=== PATIENT | male | born 1960 | race Caucasian/White ===

== ENCOUNTER → 2021-05-28 | Outpatient (CLI) | payer OTHER ==
--- NOTE | 2021-05-28 11:02 | Diagnostic Imaging Report ---
INDICATION: Chronic back pain. FINDINGS: 3 views. Lumbosacral spine shows good alignment. Body height well maintained throughout. Facets show good alignment without pars defect. There is some hypertrophic lipping of the endplates anteriorly at multiple levels. There is calcification aorta without evidence of aneurysm. IMPRESSION: Mild/moderate degenerative disc disease with hypertrophic lipping of the endplates anteriorly. Dictated by: Dictated on workstation # [id number]
== END ==
LOC: RAD 09:59
PROVIDERS: ATTEND Anesthesiology Pain Medicine
DX: Z02.71 Encounter for disability determination (principal); M51.36 Other intervertebral disc degeneration, lumbar region
CPT/HCPCS: 72100

== ENCOUNTER 2021-08-19 09:12 | Outpatient (RCR) | payer OTHER | END 2021-08-29 17:00 | disposition home or self-care (01) | PROVIDERS: ATTEND Anesthesiology Pain Medicine | DX: Z02.71 Encounter for disability determination (principal) ==

== ENCOUNTER 2022-07-14 12:43 | Emergency (ER) | payer MEDICARE ==
[~2022-07-14] VITALS: Ht 182 cm; Wt 108.0 kg
--- NOTE | 2022-07-14 13:05 | ED General ---
General Chief Complaint: Cardiac/General Problems Stated Complaint: HIGH BLOOD PRESSURE Nursing Triage Note: PT AMB TO RM 5 PT SENT TO ED BY DR URIBE W ELEVATED B/P Source of Information: Patient (VAGUE, DIFFICULT HISTORIAN) History of Present Illness Date Seen by Provider: Jul 14, 2022 Time Seen by Provider: 12:50 Initial Comments PT ARRIVES VIA POV --WAS SENT HER BY DR. URIBE AT [facility] PT STATES HE IS HERE FOR ELEVATED BLOOD PRESSURE PT HAS NO IDEA WHAT BP READINGS HAVE BEEN, PT ONLY STATES "HIGH" PT STATES SHE HAS NOT SEEN A DR IN A FEW YEARS, AND SAW DR. URIBE ABOUT A MONTH AGO, AND WAS DX WITH HTN, AND PLACED ON UNKNOWN BP MEDICATION, AND WAS GIVEN A BP MONITOR PT STATES "SHE DIDN'T LIKE THE READINGS, AND TOLD ME TO COME HERE" NO CHEST PAIN NO PALPITATIONS NO SHORTNESS OF BREATH NO SWELLING IN LEGS/FEET OR PAIN IN CALVES NO HEADACHES STATES HE IS ALWAYS DIZZY, NO DIFFERENT THAN NORMAL STATES HE HAS CHRONIC VISION PROBLEMS, NO DIFFERENT THAN NORMAL DOES STATE HIS RIGHT THUMB HURTS AND TINGLES A LITTLE PT IS INSULIN DEPENDENT DIABETIC. STATES HE CHECKS HIS BLOOD SUGAR, STATES "THEY GO UP AND DOWN" BUT CANNOT STATE WHAT ANY OF HIS READINGS HAVE BEEN. PT SMOKES 1 PPD, OCCASIONAL ALCOHOL USE, SMOKES MARIJUANA DAILY PT STATES "I TRY NOT TO TAKE ANY MEDICATIONS--I DON'T TRUST ANY PHARMACEUTICAL COMPANIES" PT IS NOT COVID OR FLU VACCINATED; PCP: [facility], DR. URIBE Allergies and Home Medications Allergies Coded Allergies: No Known Drug Allergies (Unverified , 07/14/22) Patient Home Medication List Home Medication List Reviewed: Yes Review of Systems Review of Systems Constitutional: see HPI EENTM: see HPI Respiratory: no symptoms reported Cardiovascular: No chest pain, No edema, No palpitations, No syncope, No vascular heart diseas Gastrointestinal: no symptoms reported Genitourinary: no symptoms reported Musculoskeletal: see HPI, other (CHRONIC BACK PAIN ) Skin: no symptoms reported Psychiatric/Neurological: See HPI Hematologic/Lymphatic: No Symptoms Reported Immunological/Allergic: no symptoms reported Past Wsslhvi-Hpsyef-Jdrikw Hx Patient Social History Tobacco Use?: Yes Tobacco type used: Cigarettes Smoking Status: Current Everyday Smoker Substance use?: Yes Substance type: Marijuana Substance frequency: Daily Alcohol Use?: Yes Alcohol Frequency: Once in a while Pt feels they are or have been: No Immunizations Up To Date Influenza Vaccine Up-to-Date: No; Not Current Past Medical History Surgery/Hospitalization HX: DIABETES, NECK SURGERY Surgeries: Yes (CERVICAL FUSION C5-6-7) Appendectomy, Orthopedic Respiratory: No Cardiac: Yes Hypertension Neurological: No Genitourinary: No Gastrointestinal: No Musculoskeletal: Yes (CHRONIC NECK PAIN ) Degenerate Disk Disease, Chronic Back Pain Endocrine: Yes Diabetes, Insulin dep, Hypothyroidsim HEENT: No Loss of Vision: Left Cancer: No Psychosocial: No Integumentary: No Blood Disorders: No Family Medical History SOCIAL HISTORY: -SMOKES 1 PPD -OCCASIONAL ETOH USE -SMOKES MARIJUANA DAILY Physical Exam Vital Signs Vital Signs - First Documented 07/14/22 12:50 Temp 35.6 Pulse 87 Resp 17 B/P (MAP) 204/106 (138) Pulse Ox 96 Capillary Refill : Less Than 3 Seconds Height, Weight, BMI Height: '" Weight: lbs. oz. kg; 32.00 BMI Method: General Appearance: No Apparent Distress, WD/WN, Other (DOES NOT APPEAR ILL 0R TO BE IN ANY DISCOMFORT OR DISTRESS. REEKS OF CIGARETTES) Neck: Normal Inspection Respiratory: Normal Breath Sounds, No Accessory Muscle Use, No Respiratory Distress Cardiovascular: Regular Rate, Rhythm, No Edema, No JVD, No Murmur Gastrointestinal: Non Tender Back: No CVA Tenderness Extremity: Normal Capillary Refill, Normal Inspection, Normal Range of Motion, Non Tender, No Calf Tenderness, No Pedal Edema Neurologic/Psychiatric: Alert, Oriented x3, No Motor/Sensory Deficits, lens coater II- XII Norm as Tested Skin: Normal Color, Warm/Dry Progress/Results/Core Measures Suspected Sepsis SIRS Temperature: Pulse: 87 Respiratory Rate: 17 Laboratory Tests 07/14/22 13:18: White Blood Count 10.5 Blood Pressure 204 /106 Mean: 138 Laboratory Tests 07/14/22 13:18: Creatinine 1.05, INR Comment 0.9, Platelet Count 325, Total Bilirubin 0.8 Results/Orders Lab Results Laboratory Tests Test 07/14/22 13:18 07/14/22 14:02 07/14/22 14:17 Range/Units White Blood Count 10.5 4.3-11.0 10^3/uL Red Blood Count 5.73 H 4.30-5.52 10^6/uL Hemoglobin 16.5 13.3-17.7 g/dL Hematocrit 49 40-54 % Mean Corpuscular Volume 85 80-99 fL Mean Corpuscular Hemoglobin 29 25-34 pg Mean Corpuscular Hemoglobin Concent 34 32-36 g/dL Red Cell Distribution Width 13.5 10.0-14.5 % Platelet Count 325 130-400 10^3/uL Mean Platelet Volume 9.3 9.0-12.2 fL Immature Granulocyte % (Auto) 1 % Neutrophils (%) (Auto) 72 42-75 % Lymphocytes (%) (Auto) 19 12-44 % Monocytes (%) (Auto) 5 0-12 % Eosinophils (%) (Auto) 2 0-10 % Basophils (%) (Auto) 1 0-10 % Neutrophils # (Auto) 7.6 1.8-7.8 10^3/uL Lymphocytes # (Auto) 2.0 1.0-4.0 10^3/uL Monocytes # (Auto) 0.6 0.0-1.0 10^3/uL Eosinophils # (Auto) 0.2 0.0-0.3 10^3/uL Basophils # (Auto) 0.1 0.0-0.1 10^3/uL Immature Granulocyte # (Auto) 0.1 0.0-0.1 10^3/uL Prothrombin Time 13.1 12.2-14.7 SEC INR Comment 0.9 0.8-1.4 Activated Partial Thromboplast Time 28 24-35 SEC Sodium Level 140 135-145 MMOL/L Potassium Level 4.1 3.6-5.0 MMOL/L Chloride Level 104 98-107 MMOL/L Carbon Dioxide Level 26 21-32 MMOL/L Anion Gap 10 5-14 MMOL/L Blood Urea Nitrogen 12 7-18 MG/DL Creatinine 1.05 0.60-1.30 MG/DL Estimat Glomerular Filtration Rate 80 BUN/Creatinine Ratio 11 Glucose Level 72 70-105 MG/DL Calcium Level 9.1 8.5-10.1 MG/DL Corrected Calcium 8.9 8.5-10.1 MG/DL Magnesium Level 2.4 1.6-2.4 MG/DL Total Bilirubin 0.8 0.1-1.0 MG/DL Aspartate Amino Transf (AST/SGOT) 17 5-34 U/L Alanine Aminotransferase (ALT/SGPT) 13 0-55 U/L Alkaline Phosphatase 116 40-136 U/L Total Creatine Kinase 224 H 30-200 U/L Troponin I < 0.028 <0.028 NG/ML B-Type Natriuretic Peptide 28.0 <100.0 PG/ML Total Protein 7.5 6.4-8.2 GM/DL Albumin 4.3 3.2-4.5 GM/DL Free Thyroxine 0.74 0.70-1.48 NG/DL TSH [place] Testing 5.66 H 0.35-4.94 UIU/ML Serum Alcohol < 10 <10 MG/DL Urine Color YELLOW Urine Clarity CLEAR Urine pH 6.0 5-9 Urine Specific [place] 1.015 L 1.016-1.022 Urine Protein NEGATIVE NEGATIVE Urine Glucose (UA) NEGATIVE NEGATIVE Urine Ketones NEGATIVE NEGATIVE Urine Nitrite NEGATIVE NEGATIVE Urine Bilirubin NEGATIVE NEGATIVE Urine Urobilinogen 0.2 < = 1.0 MG/DL Urine Leukocyte Esterase NEGATIVE NEGATIVE Urine RBC (Auto) NEGATIVE NEGATIVE Urine RBC NONE /HPF Urine WBC NONE /HPF Urine Crystals NONE /LPF Urine Bacteria NEGATIVE /HPF Urine Casts NONE /LPF Urine Mucus NEGATIVE /LPF Urine Culture Indicated NO Urine Opiates Screen NEGATIVE NEGATIVE Urine Oxycodone Screen NEGATIVE NEGATIVE Urine Methadone Screen NEGATIVE NEGATIVE Urine Propoxyphene Screen NEGATIVE NEGATIVE Urine Barbiturates Screen NEGATIVE NEGATIVE Ur Tricyclic Antidepressants Screen NEGATIVE NEGATIVE Urine Phencyclidine Screen NEGATIVE NEGATIVE Urine Amphetamines Screen NEGATIVE NEGATIVE Urine Methamphetamines Screen NEGATIVE NEGATIVE Urine Benzodiazepines Screen NEGATIVE NEGATIVE Urine Cocaine Screen NEGATIVE NEGATIVE Urine Cannabinoids Screen POSITIVE H NEGATIVE Glucometer 41 *L 70-110 MG/DL My Orders Orders - JEWEL HENDRIX DO Ed Iv/Invasive Line Start (07/14/22 12:51) Ekg Tracing (07/14/22 12:51) Monitor-Rhythm Ecg Trace Only (07/14/22 12:51) Chest 1 View, Ap/Pa Only (07/14/22 12:51) Bnp [place] (07/14/22 12:51) Comprehensive Metabolic Panel (07/14/22 12:51) Creatine Kinase (07/14/22 12:51) Magnesium (07/14/22 12:51) Troponin I [place] (07/14/22 12:51) Alcohol (07/14/22 12:58) Drug Screen Stat (Urine) (07/14/22 12:58) Protime With Inr (07/14/22 12:58) Partial Thromboplastin Time (07/14/22 12:58) Thyroid Analyzer (07/14/22 12:58) Ua Culture If Indicated (07/14/22 12:58) Hydralazine Injection (Apresoline Inject (07/14/22 13:15) Cbc With Automated Diff (07/14/22 13:29) Free T4 (Free Thyroxine) (07/14/22 13:18) Accucheck Stat ONCE (07/14/22 14:19) Dextrose 24 Gm Oral Gel (Insta Glucose (07/14/22 14:30) Accucheck Stat ONCE (07/14/22 14:42) Medications Given in ED Current Medications Medications Dose Ordered Sig/Heide Route Start Time Stop Time Status Last Admin Dose Admin Dextrose 21.6 gm ONCE PRN PO 07/14/22 14:30 07/14/22 14:45 21.6 GM Hydralazine HCl 10 mg ONCE ONCE IV 07/14/22 13:15 07/14/22 13:16 DC 07/14/22 13:25 10 MG Vital Signs/I&O 07/14/22 12:50 Temp 35.6 Pulse 87 Resp 17 B/P (MAP) 204/106 (138) Pulse Ox 96 Capillary Refill : Less Than 3 Seconds Blood Pressure Mean: 138 Progress Note : Progress Note ADAMANTLY REFUSES TO WEAR MASK, PER HOSPITAL POLICY. INITIAL BP 204/106, HR IN 80'S. GIVEN HYDRALAZINE. BP DOWN AND HEART RATE STABLE. 1420--PT WAS FEELING SHAKEY, ACCUCHECK 41, GIVEN DIANNA CRACKERS AND ORAL GLUCOSE. PT NOW STATES HE HAS NOT EATEN ALL DAY--NO PARTICULAR REASON FOR THIS--"JUST DIDN'T" REPEAT BLOOD GLUCOSE 97 AND PT IS FEELING MUCH BETTER NO PRIOR VISITS HERE REVIEWED TEST RESULTS, ANTICIPATED COURSE, MEDICATIONS, NEED FOR FOLLOW UP AND RETURN PRECAUTIONS AT DISMISSAL, PT NOW STATES THAT HE HAS ALREADY DOUBLED UP TWICE ON LOSARTAN--IS NOW TAKING 4 PILLS EVERY DAY. ON REVIEW OF MED RECONCILIATION, PT WAS PRESCRIBED LOSARTAN 25 MG ON 06/29/22, AND LEVOTHYROXINE 50 MCG ON 07/06/22 PT STATES HE DOES NOT HAVE A FOLLOW UP APPOINTMENT WITH [facility] ECG Initial ECG Impression Date: Jul 14, 2022 Initial ECG Impression Time: 13:02 Initial ECG Rate: 76 Initial ECG Rhythm: Normal Sinus Initial ECG Impression: Nonspecific Changes Initial ECG Comparisson: No Previous ECG Available Comment INTERPRETED BY ME Diagnostic Imaging Comments CXR--PER RADIOLOGIST REPORT AT 1353 FINDINGS: Heart size is normal. No vascular congestion. Clear lungs. No pleural pathology. IMPRESSION: Negative. Reviewed: Reviewed by Me Departure Impression Primary Impression: HTN (hypertension) Additional Impressions: IDDM (insulin dependent diabetes mellitus) Hypoglycemic episode in patient with diabetes mellitus Marijuana use Disposition: HOME, SELF-CARE Condition: Improved Departure-Patient Inst. Referrals: BRITNEY URIBE DO (PCP/Family) Primary Care Physician Patient Instructions: High Blood Pressure ED, Type 2 Diabetes (DC), DASH Diet, Carb Counting for Adults With Diabetes Add. Discharge Instructions: CONTINUE YOUR CURRENT DOSE OF LOSARTAN CONTINUE YOUR CURRENT INSULIN DOSING. EAT AT LEAST 3 HIGH PROTEIN MEALS A DAY FOLLOW UP WITH [facility] THIS WEEK FOR FURTHER CARE, RETURN TO ER IF SYMPTOMS WORSEN--CALL TODAY TO MAKE AN APPOINTMENT All discharge instructions reviewed with patient and/or family. Voiced understanding. JEWEL HENDRIX DO Jul 14, 2022 13:05
[2022-07-14] MEDS ORDERED: hydrALAZINE (APESOLINE) 20 MG/ML VIAL IV ONE (13:15)
--- NOTE | 2022-07-14 13:28 | Diagnostic Imaging Report ---
INDICATION: Hypertension. COMPARISON: No priors. FINDINGS: Heart size is normal. No vascular congestion. Clear lungs. No pleural pathology. IMPRESSION: Negative. Dictated by: Dictated on workstation # [id number]
[2022-07-14 13:39] LABS: BASOPHILS # (AUTO) 0.1 10^3/uL (0.0-0.1); BASOPHILS % (AUTO) 1 % (0-10); EOSINOPHILS # (AUTO) 0.2 10^3/uL (0.0-0.3); EOSINOPHILS % (AUTO) 2 % (0-10); HEMATOCRIT 49 % (40-54); HEMOGLOBIN 16.5 g/dL (13.3-17.7); LYMPHOCYTES % (AUTO) 19 % (12-44); MEAN CORPUSCULAR HEMOGLOBIN 29 pg (25-34); MEAN CORPUSCULAR HGB CONC 34 g/dL (32-36); MEAN CORPUSCULAR VOLUME 85 fL (80-99); MEAN PLATELET VOLUME 9.3 fL (9.0-12.2); MONOCYTES # (AUTO) 0.6 10^3/uL (0.0-1.0); MONOCYTES % (AUTO) 5 % (0-12); NEUTROPHILS # (AUTO) 7.6 10^3/uL (1.8-7.8); NEUTROPHILS % (AUTO) 72 % (42-75); PLATELET COUNT 325 10^3/uL (130-400); WHITE BLOOD COUNT 10.5 10^3/uL (4.3-11.0)
[2022-07-14 13:43] LABS: ALBUMIN 4.3 GM/DL (3.2-4.5); CHLORIDE 104 MMOL/L (98-107); POTASSIUM 4.1 MMOL/L (3.6-5.0); SODIUM 140 MMOL/L (135-145)
[2022-07-14 13:44] LABS: CALCIUM 9.1 MG/DL (8.5-10.1)
[2022-07-14 13:45] LABS: GLUCOSE 72 MG/DL (70-105)
[2022-07-14 13:46] LABS: CARBON DIOXIDE 26 MMOL/L (21-32); TOTAL PROTEIN 7.5 GM/DL (6.4-8.2)
[2022-07-14 13:47] LABS: BILIRUBIN,TOTAL 0.8 MG/DL (0.1-1.0); INR 0.9 (0.8-1.4); PROTHROMBIN TIME PATIENT 13.1 SEC (12.2-14.7)
[2022-07-14 13:49] LABS: ALKALINE PHOSPHATASE 116 U/L (40-136); CREATININE SERUM 1.05 MG/DL (0.60-1.30); GFR ESTIMATED 80
[2022-07-14 13:50] LABS: BUN/CREATININE RATIO 11
[2022-07-14 13:52] LABS: ALANINE AMINOTRANSFERASE 13 U/L (0-55); MAGNESIUM 2.4 MG/DL (1.6-2.4)
[2022-07-14 13:53] LABS: CREATINE KINASE 224 U/L (30-200)
[2022-07-14 14:12] LABS: BILIRUBIN,URINE NEGATIVE (NEGATIVE); CLARITY,URINE CLEAR; COLOR,URINE YELLOW; GLUCOSE, URINE (UA) NEGATIVE (NEGATIVE); KETONES,URINE NEGATIVE (NEGATIVE); LEUKOCYTE ESTERASE ,URINE NEGATIVE (NEGATIVE); NITRITE,URINE NEGATIVE (NEGATIVE); PROTEIN,URINE NEGATIVE (NEGATIVE)
[2022-07-14 14:13] LABS: TSH (THYROID ANALYZER) 5.66 UIU/ML (0.35-4.94)
[2022-07-14] MEDS ORDERED: DEXTROSE 24 GM ORAL GEL TUBE PO PRN (14:30)
[2022-07-14 14:31] LABS: BACTERIA,URINE NEGATIVE /HPF
[2022-07-14 14:42] LABS: AMPHETAMINE SCREEN, URINE NEGATIVE (NEGATIVE); BARBITURATE SCREEN URINE NEGATIVE (NEGATIVE); BENZODIAZEPINES SCREEN URINE NEGATIVE (NEGATIVE); CANNABINOID SCREEN, URINE POSITIVE (NEGATIVE); COCAINE SCREEN URINE NEGATIVE (NEGATIVE); METHADONE STAT NEGATIVE (NEGATIVE); OPIATE SCREEN URINE NEGATIVE (NEGATIVE); OXYCODONE STAT NEGATIVE (NEGATIVE); PROPOXYPHENE STAT NEGATIVE (NEGATIVE); TRICYCLIC ANTIDEPRESSANTS SCRE NEGATIVE (NEGATIVE)
[2022-07-14 14:48] LABS: FREE T4 (FREE THYROXINE) 0.74 NG/DL (0.70-1.48)
[2022-07-14 15:09] VITALS: BP 182/79
== END 2022-07-14 15:09 | disposition home or self-care (01) ==
LOC: EDUNIT# 12:43 → ER 12:46
DX: I10 Essential (primary) hypertension (principal); E11.649 Type 2 diabetes mellitus with hypoglycemia without coma; F12.90 Cannabis use, unspecified, uncomplicated; F17.210 Nicotine dependence, cigarettes, uncomplicated; Z28.310 Unvaccinated for COVID-19; Z79.4 Long term (current) use of insulin; Z79.899 Other long term (current) drug therapy
CPT/HCPCS: 71045; 80053; 80306; 81000; 82550; 82947; 83735; 83880; 84439; 84443; 84484; 85025; 85610; 85730; 93005; 93041; 99284; G0480; 36415; 80320

== ENCOUNTER 2022-09-24 06:34 | Outpatient (CLI) | payer MEDICARE ==
[~2022-09-24] VITALS: Ht 182.8 cm; Wt 104.5 kg
[2022-09-28] MEDS ORDERED: INSU100V31 IJ (13:08)
[2022-09-28] MEDS ORDERED: INSN1U SQ (13:08)
[2022-09-28] MEDS ORDERED: LEVO50CA4 PO (13:08)
[2022-09-28] MEDS ORDERED: LOSA1TAB20 PO (13:08)
== END 2022-09-28 13:22 ==
LOC: PREOP 06:34
PROVIDERS: ATTEND Specialist
DX: Z01.818 Encounter for other preprocedural examination (principal); H26.9 Unspecified cataract

== ENCOUNTER 2022-10-02 08:59 | Day surgery (SDC) | payer MEDICARE ==
[~2022-10-02] VITALS: Ht 182.8 cm; Wt 104.5 kg
[~2022-10-02 08:59] MED LIST: INSN1U SQ; INSU100V31 IJ; LEVO50CA4 PO; LOSA1TAB20 PO
[2022-10-02] MEDS ORDERED: MIDAZOLAM 2 MG/2 ML (VERSED) VIAL ONE (09:07)
[2022-10-02] MEDS: TETRACAINE 0.5% OPHTH SOLN 4 ML BTL (SINGLE DOSE ONLY) OU PRN ×4 (09:08→09:26)
[2022-10-02] MEDS: PHENYLEPHRINE 10% OPHTH (NEO-SYN) 5 ML BTL OU SCH ×3 (09:15→09:26)
[2022-10-02] MEDS: TROPICAMIDE 1% OPH SOLN (MYDRIACYL) 15 ML BTL OP SCH ×3 (09:15→09:26)
[2022-10-02] MEDS ORDERED: TIMOLOL 0.5% (CATARACTS) 0.3 ML BTL OU PRN (09:15)
[2022-10-02] MEDS ORDERED: POVIDONE (BETADINE) OPHTH SOLN 5% 30 ML OP ONE (09:15)
[2022-10-02] MEDS ORDERED: MOXIFLOXACIN OPHTH SOLN 5 MG/ML 0.3 ML SYRINGE OP ONE (09:15)
--- NOTE | 2022-10-02 09:18 | Ophthalmologist Pre-Op Note ---
Pre-Operative Progress Note H&P Reviewed The H&P was reviewed, patient examined and no changes noted. Date H&P Reviewed: October 02, 2022 Time H&P Reviewed: 09:18 Pre-Op Dx Cataract, Left Eye JASKARAN BOSS MD October 02, 2022 09:18
[2022-10-02 09:23] VITALS: BP 147/86
--- NOTE | 2022-10-02 09:48 | Ophthalmology Operative Report ---
Cataract removal/placement IOL PREOPERATIVE DIAGNOSIS: Cataract Left Eye POSTOPERATIVE DIAGNOSIS: Cataract Left Eye PROCEDURE: Cataract removal and placement of posterior chamber implant, left eye SURGEON: Dirk Boss ANESTHESIA: Topical with sedation COMPLICATIONS: None ESTIMATED BLOOD LOSS: Minimal DESCRIPTION OF PROCEDURE: After proper informed consent was obtained, the patient, a 61 male, was taken to the Operating Room and the left eye was anesthetized with tetracaine. The left eye was then prepped and draped in the usual manner. A wire lid speculum was placed. A paracentesis was made at the left hand position. Preservative free lidocaine was injected into the anterior chamber followed by viscoelastic. A clear corneal incision was made in the temporal position. A capsulorrhexis was preformed and the central nuclear and cortical material were removed. The posterior capsule was polished and an Jose Luis 20.5 AU00T0 was placed into the capsular bag. The residual viscoelastic was aspirated and balanced saline solution was injected into the anterior chamber. Moxifloxacin was injected into the anterior chamber. The wound was checked and found to be water tight. The patient tolerated the procedure well without complications. DIRK BOSS MD October 02, 2022 09:48
[2022-10-02 09:52] VITALS: BP 147/86
[2022-10-02] MEDS ORDERED: acetaZOLAMIDE ER 500 MG CAP (DIAMOX SEQUELS) PO ONE (10:30)
--- NOTE | 2022-10-02 12:22 | Anesthesia-General Post-Op ---
MAC Patient Condition Mental Status/LOC: Same as Preop Cardiovascular: Satisfactory Nausea/Vomiting: Absent Respiratory: Satisfactory Pain: Controlled Complications: Absent Post Op Complications Complications None Follow Up Care/Instructions Patient Instructions None needed. Anesthesiology Discharge Order Discharge Order Patient is doing well, no complaints, stable vital signs, no apparent adverse anesthesia problems. No complications reported per nursing. ISAAK WEBSTER CRNA October 02, 2022 12:22
== END 2022-10-02 09:56 | disposition home or self-care (01) ==
LOC: SDC 08:59
PROVIDERS: ATTEND Specialist
DX: E11.36 Type 2 diabetes mellitus with diabetic cataract (principal); H25.9 Unspecified age-related cataract
CPT/HCPCS: 66984; 82947; V2632

== ENCOUNTER 2023-01-07 15:43 | Emergency (ER) | payer MEDICARE, MEDICAID ==
[~2023-01-07] VITALS: Ht 182.8 cm; Wt 100.0 kg
[2023-01-07] MEDS ORDERED: NS IV 1000 ML 1,000 ML IV STA (16:05)
--- NOTE | 2023-01-07 16:10 | ED General ---
General Chief Complaint: Dizziness/Syncope Stated Complaint: CONFUSION/SYNCOPAL EPISODE Nursing Triage Note: PT AMB TO [facility] WITH C/O DIZZINESS SINCE YESTREDAY, SYNCOPAL EPISODE YESTERDAY, NAUSEA AND MULTIPLE EPISODES OF VOMITTING. PT DENIES VOMITTING TODAY Source of Information: Patient, RN/MD Exam Limitations: No Limitations History of Present Illness Date Seen by Provider: Jan 07, 2023 Time Seen by Provider: 15:47 Initial Comments 62-year-old male with past medical history of diabetes and hypertension coming in as a referral from [facility]. He has felt lightheaded for quite some time, he equates it to being on a new blood pressure medicine for the past 6 months. He states when he is doing better and remembering to take it, he tends to feel more lightheaded. Yesterday he had an episode where he felt li ghtheaded, had a syncopal episode lasting several seconds. Prior to this he had multiple episodes of nonbloody nonbilious vomiting. He denies any vomiting today. Denies any abdominal pain then or now. He is also denying any chest pain, shortness of breath, fever, diarrhea, dysuria, focal weakness or numbness, vision changes, or any other concerns. He is at his baseline right now. Allergies and Home Medications Allergies Coded Allergies: No Known Drug Allergies (Unverified , 09/28/22) Patient Home Medication List Home Medication List Reviewed: Yes Insulin NPH Human Isophane (Novolin N) 100 Unit/Ml Vial, 0 SQ UD, (Reported) Entered as Reported by: MARIA ISABEL TOVAR on 09/28/22 1308 Insulin Regular, Human (Novolin R) 100 Unit/Ml Vial, 0 IJ UD, (Reported) Entered as Reported by: MARIA ISABEL TOVAR on 09/28/22 1308 Levothyroxine Sodium (Levothyroxine) 50 Mcg Capsule, 50 MCG PO DAILY, (Reported) Entered as Reported by: MARIA ISABEL TOVAR on 09/28/22 1308 Losartan/Hydrochlorothiazide (Losartan-Hctz 50-12.5 mg Tab) 50 Mg-12.5 Mg Tablet, 1 EACH PO BID, (Reported) Entered as Reported by: MARIA ISABEL TOVAR on 09/28/22 1308 Ondansetron (Ondansetron Odt) 4 Mg Tab.rapdis, 4 MG SL Q6H PRN for NAUSEA/VOMITING Prescribed by: ARMINDA NOEL on 01/07/23 3427 Review of Systems Review of Systems Constitutional: No fever EENTM: no symptoms reported Respiratory: no symptoms reported Cardiovascular: see HPI Gastrointestinal: no symptoms reported Genitourinary: no symptoms reported Musculoskeletal: no symptoms reported Skin: no symptoms reported Psychiatric/Neurological: See HPI Hematologic/Lymphatic: No Symptoms Reported Immunological/Allergic: no symptoms reported Past Kdjfwpr-Fzdezr-Gnsfzt Hx Patient Social History Tobacco Use?: Yes Tobacco type used: Cigarettes Substance use?: Yes Substance type: Marijuana Alcohol Use?: Yes Alcohol Frequency: Rarely Pt feels they are or have been: No Past Medical History Surgery/Hospitalization HX: DIABETES, NECK SURGERY HTN Surgeries: Yes (CERVICAL FUSION C5-6-7) Appendectomy, Orthopedic Respiratory: No Cardiac: Yes Hypertension Neurological: No Genitourinary: No Gastrointestinal: No Musculoskeletal: Yes (CHRONIC NECK PAIN ) Degenerate Disk Disease, Chronic Back Pain Endocrine: Yes Diabetes, Insulin dep, Hypothyroidsim HEENT: No Loss of Vision: Left Cancer: No Psychosocial: No Integumentary: No Blood Disorders: No Family Medical History SOCIAL HISTORY: -SMOKES 1 PPD -OCCASIONAL ETOH USE -SMOKES MARIJUANA DAILY Physical Exam Vital Signs Vital Signs - First Documented 01/07/23 15:56 Temp 36.4 Pulse 90 Resp 16 B/P (MAP) 183/108 (133) Pulse Ox 97 Capillary Refill : Height, Weight, BMI Height: '" Weight: lbs. oz. kg; 29.00 BMI Method: General Appearance: No Apparent Distress, WD/WN Eyes: Bilateral Eye Normal Inspection, Bilateral Eye PERRL, Bilateral Eye EOMI HEENT: PERRL/EOMI, Normal ENT Inspection, Pharynx Normal Neck: Full Range of Motion, Normal Inspection, Non Tender, Supple Respiratory: Chest Non Tender, Lungs Clear, Normal Breath Sounds, No Accessory Muscle Use, No Respiratory Distress Cardiovascular: Regular Rate, Rhythm, No Edema, Normal Peripheral Pulses Gastrointestinal: Normal Bowel Sounds, Non Tender, Soft; No Distended, No Guarding Back: Normal Inspection, No CVA Tenderness, No Vertebral Tenderness Extremity: Normal Capillary Refill, Normal Inspection, Normal Range of Motion, Non Tender, No Calf Tenderness, No Pedal Edema Neurologic/Psychiatric: Alert, Oriented x3, No Motor/Sensory Deficits, Normal Mood/Affect, grainer machine II-XII Norm as Tested, Other (Normal gait, normal finger-nose, normal sbms-xk-kphw, normal visual keenan and visual acuity, normal speech) Skin: Normal Color, Warm/Dry Progress/Results/Core Measures Suspected Sepsis SIRS Temperature: Pulse: 90 Respiratory Rate: 16 Laboratory Tests 01/07/23 16:00: White Blood Count 12.5H Blood Pressure 183 /108 Mean: 133 Laboratory Tests 01/07/23 16:00: Creatinine 1.37H, INR Comment 0.9, Platelet Count 291, Total Bilirubin 1.4H Results/Orders Lab Results Laboratory Tests Test 01/07/23 16:00 Range/Units White Blood Count 12.5 H 4.3-11.0 10^3/uL Red Blood Count 5.90 H 4.30-5.52 10^6/uL Hemoglobin 17.7 13.3-17.7 g/dL Hematocrit 51 40-54 % Mean Corpuscular Volume 86 80-99 fL Mean Corpuscular Hemoglobin 30 25-34 pg Mean Corpuscular Hemoglobin Concent 35 32-36 g/dL Red Cell Distribution Width 13.1 10.0-14.5 % Platelet Count 291 130-400 10^3/uL Mean Platelet Volume 9.4 9.0-12.2 fL Immature Granulocyte % (Auto) 0 % Neutrophils (%) (Auto) 71 42-75 % Lymphocytes (%) (Auto) 22 12-44 % Monocytes (%) (Auto) 6 0-12 % Eosinophils (%) (Auto) 1 0-10 % Basophils (%) (Auto) 1 0-10 % Neutrophils # (Auto) 8.8 H 1.8-7.8 10^3/uL Lymphocytes # (Auto) 2.7 1.0-4.0 10^3/uL Monocytes # (Auto) 0.7 0.0-1.0 10^3/uL Eosinophils # (Auto) 0.1 0.0-0.3 10^3/uL Basophils # (Auto) 0.1 0.0-0.1 10^3/uL Immature Granulocyte # (Auto) 0.0 0.0-0.1 10^3/uL Prothrombin Time 12.8 12.2-14.7 SEC INR Comment 0.9 0.8-1.4 Activated Partial Thromboplast Time 28 24-35 SEC Sodium Level 135 135-145 MMOL/L Potassium Level 4.0 3.6-5.0 MMOL/L Chloride Level 102 98-107 MMOL/L Carbon Dioxide Level 23 21-32 MMOL/L Anion Gap 10 5-14 MMOL/L Blood Urea Nitrogen 25 H 7-18 MG/DL Creatinine 1.37 H 0.60-1.30 MG/DL Estimat Glomerular Filtration Rate 58 BUN/Creatinine Ratio 18 Glucose Level 261 H 70-105 MG/DL Calcium Level 9.2 8.5-10.1 MG/DL Corrected Calcium 9.0 8.5-10.1 MG/DL Magnesium Level 2.2 1.6-2.4 MG/DL Total Bilirubin 1.4 H 0.1-1.0 MG/DL Aspartate Amino Transf (AST/SGOT) 16 5-34 U/L Alanine Aminotransferase (ALT/SGPT) 16 0-55 U/L Alkaline Phosphatase 113 40-136 U/L Troponin I < 0.028 <0.028 NG/ML Total Protein 7.1 6.4-8.2 GM/DL Albumin 4.2 3.2-4.5 GM/DL Lipase 64 8-78 U/L My Orders Orders - ARMINDA NOEL MD Ct Head Wo (01/07/23 16:05) Ed Iv/Invasive Line Start (01/07/23 16:05) Cbc With Automated Diff (01/07/23 16:05) Comprehensive Metabolic Panel (01/07/23 16:05) Lipase (01/07/23 16:05) Magnesium (01/07/23 16:05) Protime With Inr (01/07/23 16:05) Partial Thromboplastin Time (01/07/23 16:05) Troponin I Talha (01/07/23 16:05) Monitor-Rhythm Ecg Trace Only (01/07/23 16:05) Chest 1 View, Ap/Pa Only (01/07/23 16:05) Ns Iv 1000 Ml (Ns Iv 1000 Ml) (01/07/23 16:05) Ekg Tracing (01/07/23 16:33) Vital Signs/I&O 01/07/23 15:56 Temp 36.4 Pulse 90 Resp 16 B/P (MAP) 183/108 (133) Pulse Ox 97 Capillary Refill : Blood Pressure Mean: 133 Progress Note : Progress Note 62-year-old male presenting after several hours of vomiting yesterday with syncopal episode. ABCs were intact and vitals were stable on presentation. He is neurovascularly intact including a comprehensive neuro exam with nothing focal. Chest x-ray ordered and interpreted by me showing no obvious pneumonia or pneumothorax. CT head ordered and interpreted by me showing no intracranial hemorrhage or large stroke. Labs were ordered and were significant for a mild MAMIE, slightly elevated white blood cell count which is likely secondary to the vomiting episodes, negative troponin. Patient does not want to be COVID tested at this time. Abdominal exam is reassuring with no tenderness. His bilirubin is just slightly elevated, I would recommend he have a repeat CMP done to check his kidney function and liver function again. I believe he is otherwise stable for discharge with outpatient follow-up. He was sent home with strict return precautions ECG Initial ECG Impression Date: Jan 07, 2023 Initial ECG Impression Time: 17:07 Initial ECG Rate: 66 Initial ECG Rhythm: Normal Sinus Comment Narrow QRS, normal axis, no significant ST changes or T wave abnormalities, no STEMI Diagnostic Imaging Diagonstic Imaging: Xray (chest), CT (head) Comments [facility] [place], [place] NAME: RUSTAM SORIANO [email or web address] REC#: [id number] PT STATUS: REG ER : 1960 PHYSICIAN: ARMINDA NOEL MD ADMIT DATE: 01/07/23/ER Draft Date of Exam:01/07/23 CHEST 1 VIEW, AP/PA ONLY EXAMINATION: Chest 1 view. HISTORY: Syncope. COMPARISON: 07/14/2022. FINDINGS: The lungs are clear without edema or pneumonia. No pleural effusion or pneumothorax. Heart size is normal. IMPRESSION: Clear lungs. Dictated on workstation # [id number] Dict: 01/07/23 165 Trans: 01/07/231652 [facility] [id number] Interpreted by: OBINNA GARZA MD Electronically signed by: [facility]. [place], [place] NAME: RUSTAM SORIANO [email or web address] REC#: [id number] PT STATUS: REG ER : 1960 PHYSICIAN: ARMINDA NOEL MD ADMIT DATE: 01/07/23/ER Draft Date of Exam:01/07/23 CT HEAD WO INDICATION: Syncope, aphasia that has resolved. TECHNIQUE: Routine non contrast-enhanced axial images were obtained from the skull base to the vertex. Auto Exposure Controls were utilized during the CT exam to meet ALARA standards for radiation dose reduction COMPARISON: None. FINDINGS: The ventricles and cortical sulci are age-appropriate. There is no midline shift or mass-effect. No acute intra-axial hemorrhage is seen. There is no abnormal area of increased or decreased density to suggest acute hemorrhage or edema. No extra-axial mass or collection is present. Small scalp hematoma is noted posterolaterally on the right. The underlying bony calvarium is intact. The visualized paranasal sinuses are unremarkable. The mastoid air cells are clear. IMPRESSION: 1. No acute intracranial abnormality. No CT evidence of mass, acute infarct or intracranial hemorrhage. 2. Small scalp hematoma posterolaterally on the right. Dictated on workstation # [id number] Dict: 01/07/23 1649 Trans: 01/07/23 1654 [facility] [id number] Interpreted by: DB CHANDRA MD Electronically signed by: Departure Impression Primary Impression: Mild dehydration Additional Impressions: Syncope Qualified Codes: R55 - Syncope and collapse Vomiting in adult Hyperbilirubinemia Disposition: 01 HOME, SELF-CARE Condition: Stable Departure-Patient Inst. Decision time for Depature: 17:15 Referrals: BRITNEY URIBE DO (PCP/Family) Primary Care Physician Patient Instructions: Fainting, Adult ED Add. Discharge Instructions: We are not seeing any evidence of stroke or any significant concerns. It is pos sible that the medication for your blood pressure is causing you to be lightheaded. I would recommend discussing that with your regular doctor to see if they want to go down on the dose or change the medication. You were mildly dehydrated based on your labs from the vomiting. The fluid you received should help with that. Nausea medicines were sent to your pharmacy in case you become nauseous again. Of note, your bilirubin and creatinine were just very slightly elevated. We recommend your regular doctor redraw this in the next few weeks to month to see if they trend down to a more normal level. Scripts Ondansetron (Ondansetron Odt) 4 Mg Tab.rapdis 4 MG SL Q6H PRN for NAUSEA/VOMITING for 5 Days, #20 TAB Prov: ARMINDA NOEL MD 01/07/23 ARMINDA NOEL MD Jan 07, 2023 16:10
[2023-01-07 16:22] LABS: BASOPHILS # (AUTO) 0.1 10^3/uL (0.0-0.1); BASOPHILS % (AUTO) 1 % (0-10); EOSINOPHILS # (AUTO) 0.1 10^3/uL (0.0-0.3); EOSINOPHILS % (AUTO) 1 % (0-10); HEMATOCRIT 51 % (40-54); HEMOGLOBIN 17.7 g/dL (13.3-17.7); LYMPHOCYTES # (AUTO) 2.7 10^3/uL (1.0-4.0); LYMPHOCYTES % (AUTO) 22 % (12-44); MEAN CORPUSCULAR HEMOGLOBIN 30 pg (25-34); MEAN CORPUSCULAR HGB CONC 35 g/dL (32-36); MEAN CORPUSCULAR VOLUME 86 fL (80-99); MEAN PLATELET VOLUME 9.4 fL (9.0-12.2); MONOCYTES # (AUTO) 0.7 10^3/uL (0.0-1.0); MONOCYTES % (AUTO) 6 % (0-12); NEUTROPHILS # (AUTO) 8.8 10^3/uL (1.8-7.8); NEUTROPHILS % (AUTO) 71 % (42-75); PLATELET COUNT 291 10^3/uL (130-400); WHITE BLOOD COUNT 12.5 10^3/uL (4.3-11.0)
[2023-01-07 16:24] LABS: ALBUMIN 4.2 GM/DL (3.2-4.5); CHLORIDE 102 MMOL/L (98-107); SODIUM 135 MMOL/L (135-145)
[2023-01-07 16:26] LABS: CALCIUM 9.2 MG/DL (8.5-10.1)
[2023-01-07 16:27] LABS: GLUCOSE 261 MG/DL (70-105); TOTAL PROTEIN 7.1 GM/DL (6.4-8.2)
[2023-01-07 16:28] LABS: CARBON DIOXIDE 23 MMOL/L (21-32)
[2023-01-07 16:29] LABS: BILIRUBIN,TOTAL 1.4 MG/DL (0.1-1.0)
[2023-01-07 16:30] LABS: ALKALINE PHOSPHATASE 113 U/L (40-136); CREATININE SERUM 1.37 MG/DL (0.60-1.30); GFR ESTIMATED 58
[2023-01-07 16:31] LABS: BUN/CREATININE RATIO 18; INR 0.9 (0.8-1.4); PROTHROMBIN TIME PATIENT 12.8 SEC (12.2-14.7)
[2023-01-07 16:33] LABS: ALANINE AMINOTRANSFERASE 16 U/L (0-55)
[2023-01-07 16:34] LABS: MAGNESIUM 2.2 MG/DL (1.6-2.4)
[2023-01-07 16:35] LABS: LIPASE 64 U/L (8-78)
--- NOTE | 2023-01-07 16:53 | Diagnostic Imaging Report ---
EXAMINATION: Chest 1 view. HISTORY: Syncope. COMPARISON: 07/14/2022. FINDINGS: The lungs are clear without edema or pneumonia. No pleural effusion or pneumothorax. Heart size is normal. IMPRESSION: Clear lungs. Dictated by: Dictated on workstation # [id number]
--- NOTE | 2023-01-07 16:54 | Diagnostic Imaging Report ---
INDICATION: Syncope, aphasia that has resolved. TECHNIQUE: Routine non contrast-enhanced axial images were obtained from the skull base to the vertex. Auto Exposure Controls were utilized during the CT exam to meet ALARA standards for radiation dose reduction COMPARISON: None. FINDINGS: The ventricles and cortical sulci are age-appropriate. There is no midline shift or mass-effect. No acute intra-axial hemorrhage is seen. There is no abnormal area of increased or decreased density to suggest acute hemorrhage or edema. No extra-axial mass or collection is present. Small scalp hematoma is noted posterolaterally on the right. The underlying bony calvarium is intact. The visualized paranasal sinuses are unremarkable. The mastoid air cells are clear. IMPRESSION: 1. No acute intracranial abnormality. No CT evidence of mass, acute infarct or intracranial hemorrhage. 2. Small scalp hematoma posterolaterally on the right. Dictated by: Dictated on workstation # [id number]
[2023-01-07] MEDS ORDERED: ONDA4TAB11 SL ×2 (16:59→17:17)
[2023-01-07 17:25] VITALS: BP 163/94
== END 2023-01-07 17:25 | disposition home or self-care (01) ==
LOC: EDUNIT# 15:43 → ER 15:47
DX: E80.6 Other disorders of bilirubin metabolism (principal); E86.0 Dehydration; R11.10 Vomiting, unspecified; R55 Syncope and collapse; F17.210 Nicotine dependence, cigarettes, uncomplicated; E11.9 Type 2 diabetes mellitus without complications; Z79.4 Long term (current) use of insulin
CPT/HCPCS: 36415; 70450; 71045; 80053; 83690; 83735; 84484; 85025; 85610; 85730; 93005; 93041